=== PATIENT | male | born 1965 | race Caucasian/White ===

== ENCOUNTER 2018-09-04 10:49 | Emergency (ER) | payer OTHER ==
--- NOTE | 2018-09-04 11:44 | EDM.PDOC ---
ED HPI GENERAL MEDICAL PROBLEM - General Chief Complaint: Upper Extremity Injury/Pain Stated Complaint: BROKEN FINGER Time Seen by Provider: 09/04/18 11:38 - History of Present Illness INITIAL COMMENTS - FREE TEXT/NARRATIVE: HISTORY AND PHYSICAL: History of present illness: Patient is 53-year-old male presents with concern of history of fall with injury to the fourth digit of his right hand on his right elbow he denies other trauma or concern. Review of systems: As per history of present illness and below otherwise all systems reviewed and negative. Past medical history: As per history of present illness and as reviewed below otherwise noncontributory. Surgical history: As per history of present illness and as reviewed below otherwise noncontributory. Social history: No reported history of drug or alcohol abuse. Family history: As per history of present illness and as reviewed below otherwise noncontributory. Physical exam: HEENT: Atraumatic, normocephalic, pupils reactive, negative for conjunctival pallor or scleral icterus, mucous membranes moist, throat clear, neck supple, nontender, trachea midline. Lungs: Clear to auscultation, breath sounds equal bilaterally, chest nontender. Heart: S1S2, regular, negative for clicks, rubs, or JVD. Abdomen: Soft, nondistended, nontender. Negative for masses or hepatosplenomegaly. Negative for costovertebral tenderness. Pelvis: Stable nontender. Genitourinary: Deferred. Rectal: Deferred. Extremities: Patient has tenderness over the DIP of the fourth digit of his right hand with a slight flexion deformity is also known to have tenderness and swelling of the right elbow particularly overlying the olecranon bursa Neuro: Awake, alert, oriented. Cranial nerves II through XII unremarkable. Cerebellum unremarkable. Motor and sensory unremarkable throughout. Exam nonfocal. Diagnostics: X-ray left hand/oh Therapeutics: Aluminum/foam splint fourth digit right hand Impression: #1 acute injury right hand with possible tendon injury fourth digit #2 traumatic bursitis right elbow Definitive disposition and diagnosis as appropriate pending reevaluation and review of above. Right Finger-Ring Pain Score (Numeric/FACES): 7 Right Elbow Pain Score (Numeric/FACES): 10 - Related Data Allergies Allergy/AdvReac Type Severity Reaction Status Date / Time No Known Allergies Allergy Verified 09/04/18 11:06 Home Meds: Home Meds . [No Known Home Meds] 06/22/13 [History] Past Medical History Hematologic History: Reports: Other (See Below) Other Hematologic History: VonWillibrands (Factor 8 deficiency) - Past Surgical History Musculoskeletal Surgical History: Reports: Arthroscopic Knee Social & Family History - Family History Family Medical History: Noncontributory - Tobacco Use Smoking Status *Q: Current Every Day Smoker Years of Tobacco use: 30 Packs/Tins Daily: 0.5 - Caffeine Use Caffeine Use: Reports: Coffee - Recreational Drug Use Recreational Drug Use: No Review of Systems - Review of Systems Review Of Systems: ROS reveals no pertinent complaints other than HPI. ED EXAM, GENERAL - Physical Exam Exam: See Below (See dictation) Course - Vital Signs Last Recorded V/S: Last Vital Signs Temp 36.5 C 09/04/18 11:02 Pulse 81 09/04/18 11:02 Resp 18 09/04/18 11:02 BP 129/83 09/04/18 11:02 Pulse Ox 94 L 09/04/18 11:02 - Orders/Labs/Meds Orders: Active Orders 24 hr Category Date Time Status Elbow Min 3V Rt [CR] Stat Exams 09/04/18 11:39 Ordered Hand Comp Min 3V Rt [CR] Stat Exams 09/04/18 11:39 Ordered Departure - Departure Time of Disposition: 11:42 Disposition: Home, Self-Care 01 Condition: Good Clinical Impression: Traumatic bursitis, Hand injury - Discharge Information Referrals: PCP,None [Primary Care Provider] - Additional Instructions: The following information is given to patients seen in the emergency department who are being discharged to home. This information is to outline your options for follow-up care. We provide all patients seen in our emergency department with a follow-up referral. The need for follow-up, as well as the timing and circumstances, are variable depending upon the specifics of your emergency department visit. If you don't have a primary care physician on staff, we will provide you with a referral. We always advise you to contact your personal physician following an emergency department visit to inform them of the circumstance of the visit and for follow-up with them and/or the need for any referrals to a consulting specialist. The emergency department will also refer you to a specialist when appropriate. This referral assures that you have the opportunity for followup care with a specialist. All of these measure are taken in an effort to provide you with optimal care, which includes your followup. Under all circumstances we always encourage you to contact your private physician who remains a resource for coordinating your care. When calling for followup care, please make the office aware that this follow-up is from your recent emergency room visit. If for any reason you are refused follow-up, please contact the [facility] emergency department at and asked to speak to the emergency department charge nurse. [facility] Professional [address], [address] [place] [address] Aluminum/foam splint as directed follow-up orthopedic surgery above: Schedule appointment return as needed as discussed - My Orders Last 24 Hours: My Active Orders 09/04/18 11:39 Elbow Min 3V Rt [CR] Stat Hand Comp Min 3V Rt [CR] Stat - Assessment/Plan Last 24 Hours: My Active Orders 09/04/18 11:39 Elbow Min 3V Rt [CR] Stat Hand Comp Min 3V Rt [CR] Stat
--- NOTE | 2018-09-04 12:35 | CR ---
EXAMINATION: Right hand and right elbow HISTORY: Pain COMPARISON: None TECHNIQUE: 3 views of the right hand and 3 views of the right elbow FINDINGS: There is no acute osseous abnormality, dislocation, or fracture. Bone mineralization appears normal. 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 Early osteoarthritic changes also noted at the first CMC and MCP joints. Radiocarpal alignment is normal. No focal soft tissue swelling. Elbow joint spaces are preserved. No joint effusion. Mild soft tissue swelling overlying the olecranon with a small triceps insertion enthesophyte. IMPRESSION: 1. Degenerative changes without acute osseous findings.
[2018-09-04 13:28] VITALS: BP 123/85
== END 2018-09-04 13:28 | disposition home or self-care (01) ==
LOC: MW.ED 10:49
DX: S69.91XA Unspecified injury of right wrist, hand and finger(s), initial encounter (principal); M70.31 Other bursitis of elbow, right elbow; F17.210 Nicotine dependence, cigarettes, uncomplicated; W01.0XXA Fall on same level from slipping, tripping and stumbling without subsequent striking against object, initial encounter
CPT/HCPCS: 73080-26-RT; 73080-RT; 73130-26-RT; 73130-RT; 99282; 99283-25

== ENCOUNTER 2019-04-15 21:32 | Emergency (ER) | payer SELFPAY ==
[2019-04-15 21:48] VITALS: BP 152/92; PULSE 80
--- NOTE | 2019-04-15 22:13 | EDM.PDOC ---
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 He did not pass out or blackout but felt very dazed and stunned and had some tingling down bilateral upper extremities and he has not had any nausea or vomiting. He is concerned because of his factor VIII and that he has a small bump on his head he wants to make sure that everything inside his head is okay. He has no neck or back pain and no other systemic issues and prior to this fall was in his usual state of good health. He said initially he did not want to come in but his brother insisted. Review of systems: As per history of present illness and below otherwise all systems reviewed and negative. Past medical history: As per history of present illness and as reviewed below otherwise noncontributory. Surgical history: As per history of present illness and as reviewed below otherwise noncontributory. Social history: No reported history of drug or alcohol abuse. Family history: As per history of present illness and as reviewed below otherwise noncontributory. Physical exam: Well-developed well-nourished man who is nontoxic and vital signs are noted by me HEENT: Atraumatic except for a small raised area on the scalp at the right parietal area without defects or deformities, normocephalic, pupils reactive, negative for conjunctival pallor or scleral icterus, mucous membranes moist, throat clear, neck supple, nontender, trachea midline. There are no midline step-offs tenderness defects of the cervical spine and no paraspinal tenderness Lungs: Clear to auscultation, breath sounds equal bilaterally, chest nontender. Heart: S1S2, regular, negative for clicks, rubs, or JVD. Abdomen: Soft, nondistended, nontender. Negative for masses or hepatosplenomegaly. Negative for costovertebral tenderness. Pelvis: Stable nontender. Genitourinary: Deferred. Rectal: Deferred. Extremities: Atraumatic and full range of motion of all extremities with the exception of the volar proximal forearm on the right where there is a small contusion without any palpable bony defects or deformities, negative for cords or calf pain. Neurovascular unremarkable. Neuro: Awake, alert, oriented. Cranial nerves II through XII unremarkable. Cerebellum unremarkable. Motor and sensory unremarkable throughout. Exam nonfocal. Back: There are no midline step-offs tenderness defects of the thoracic or lumbar spine and no posterior rib tenderness Diagnostics: CT scan of the head, patient declined right forearm x-ray and CT scan of the neck Therapeutics: Impression: Fall with scalp contusion and history of factor VIII Definitive disposition and diagnosis as appropriate pending reevaluation and review of above. head Pain Score (Numeric/FACES): 2 - Related Data Allergies Allergy/AdvReac Type Severity Reaction Status Date / Time No Known Allergies Allergy Verified 04/15/19 21:48 Home Meds: Home Meds . [No Known Home Meds] 06/22/13 [History] Past Medical History Musculoskeletal History: Reports: None Hematologic History: Reports: Other (See Below) Other Hematologic History: VonWillibrands (Factor 8 deficiency) - Infectious Disease History Infectious Disease History: Reports: Chicken Pox - Past Surgical History Musculoskeletal Surgical History: Reports: Arthroscopic Knee Social & Family History - Family History Family Medical History: Noncontributory - Tobacco Use Smoking Status *Q: Current Every Day Smoker Years of Tobacco use: 10 Packs/Tins Daily: 0.5 - Caffeine Use Caffeine Use: Reports: Coffee, Soda - Recreational Drug Use Recreational Drug Use: No ED ROS GENERAL - Review of Systems Review Of Systems: Comprehensive ROS is negative, except as noted in HPI. ED EXAM, HEAD INJURY - Physical Exam Exam: See Below (See dictation) Course - Vital Signs Last Recorded V/S: Last Vital Signs Temp 37.1 C 04/15/19 21:37 Pulse 80 04/15/19 21:37 Resp 20 04/15/19 21:37 BP 152/92 H 04/15/19 21:37 Pulse Ox 96 04/15/19 21:37 Departure - Departure Time of Disposition: 23:14 Disposition: Home, Self-Care 01 Condition: Good Clinical Impression: Scalp contusion Qualifiers: Encounter type: initial encounter Qualified Code(s): S00.03XA - Contusion of scalp, initial encounter Closed head injury Qualifiers: Encounter type: initial encounter Qualified Code(s): S09.90XA - Unspecified injury of head, initial encounter - Discharge Information Referrals: PCP,None [Primary Care Provider] - Forms: ED Department Discharge Additional Instructions: The following information is given to patients seen in the emergency department who are being discharged to home. This information is to outline your options for follow-up care. We provide all patients seen in our emergency department with a follow-up referral. The need for follow-up, as well as the timing and circumstances, are variable depending upon the specifics of your emergency department visit. If you don't have a primary care physician on staff, we will provide you with a referral. We always advise you to contact your personal physician following an emergency department visit to inform them of the circumstance of the visit and for follow-up with them and/or the need for any referrals to a consulting specialist. The emergency department will also refer you to a specialist when appropriate. This referral assures that you have the opportunity for followup care with a specialist. All of these measure are taken in an effort to provide you with optimal care, which includes your followup. Under all circumstances we always encourage you to contact your private physician who remains a resource for coordinating your care. When calling for followup care, please make the office aware that this follow-up is from your recent emergency room visit. If for any reason you are refused follow-up, please contact the [facility] emergency department at and ask to speak to the emergency department charge nurse. [facility] Primary care- Internal Medicine and Family [address] [address] Use [id number] Tylenol or Motrin for pain management and expect aches and pains secondary to your fall. Follow-up with your provider or 1 of ours as you choose for follow-up and return to ER as needed and as discussed Sepsis Event Note - Evaluation Sepsis Screening Result: No Definite Risk - Focused Exam Vital Signs: Vital Signs Temp Pulse Resp BP Pulse Ox 04/15/19 21:37 37.1 C 80 20 152/92 H 96 Date Exam was Performed: 04/15/19 Time Exam was Performed: 23:14
--- NOTE | 2019-04-15 23:06 | CT ---
INDICATION: Fall, posterior head swelling TECHNIQUE: CT head without contrast. COMPARISON: None. FINDINGS: CSF spaces: Within normal limits for age. Brain parenchyma: The garza-white differentiation is normal. No sign of mass, hemorrhage, or midline shift. Skull base and calvarium: The visualized paranasal sinuses and mastoid air cells demonstrate no acute or significant findings. The visualized orbits are grossly unremarkable. No skull fractures. IMPRESSION: Unremarkable noncontrast head CT. Please note that all CT scans at this facility use dose modulation, iterative reconstruction, and/or weight-based dosing when appropriate to reduce radiation dose to as low as reasonably achievable. Dictated by Bairon Gusman MD @ Apr 15 2019 10:50PM Signed by Dr. Bairon Gusman @ Apr 15 2019 11:05PM
== END 2019-04-15 23:24 | disposition home or self-care (01) ==
LOC: MW.ED 21:32
DX: S00.03XA Contusion of scalp, initial encounter (principal); S09.90XA Unspecified injury of head, initial encounter; F17.210 Nicotine dependence, cigarettes, uncomplicated; Z86.2 Personal history of diseases of the blood and blood-forming organs and certain disorders involving the immune mechanism; W00.0XXA Fall on same level due to ice and snow, initial encounter
CPT/HCPCS: 70450; 70450-26; 99283-25; 99284